=== PATIENT | female | born 1930 | race African-American/Black ===

== ENCOUNTER 2019-12-19 07:28 | Emergency (ER) | payer MEDICARE, OTHER ==
[~2019-12-19] VITALS: Ht 165.1 cm; Wt 50.0 kg
[~2019-12-19 07:28] MED LIST: ALBU8.5H5 IH; DOXY100C2 PO; FLUT1DIS IH; LEVO500T47 PO; PRED20TA PO; TIOT18CA INH
[2019-12-19] MEDS ORDERED: methylPREDNISolone SOD SUCC 125 MG/2 ML ONE (07:47)
--- NOTE | 2019-12-19 07:52 | NUR ---
PER SON "HER RESPIRATOR RAN OUT OF WATER. SO I THINK THAT'S WHAT HAPPENED. I'M CALLING TO GET IT REPLACED." LAB BEDSIDE.
--- NOTE | 2019-12-19 07:59 | NUR ---
89 Y/O FEMALE BIB AMBULANCE WITH C/O SOB. PER EMS REPORT PT GOT SOB LAST NIGHT. ON ARRIVAL PT WAS 68% ON ROOM AIR. PT WAS PLACED ON 10 LPM BY FIRE. PT APPEARS TO BE ON RA HERE AT 90%. PT PLACED ON 2 LPM, WHICH IS HER BASELINE AT HOME. PT OXYGEN SATURATION NOW 94%. 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 PT RECEIVED TWO NEB TREATMENTS CORRIDOR REDEVELOPMENT MANAGER. NO C/O N/V/D, TRAUMA, SYNCOPE, CP.
[2019-12-19] MEDS ORDERED: ALBUTEROL/IPRATROPIUM 2.5MG/0.5MG, 3 ML NPPB SCH (08:00)
[2019-12-19] MEDS ORDERED: methylPREDNISolone SOD SUCC 125 MG/2 ML IV ONE (08:00)
[2019-12-19] MEDS ORDERED: SODIUM CHLORIDE FLUSH 10ML SYR IVF ONE (08:00)
[2019-12-19 08:07] LABS: MEAN CORPUSCULAR HGB CONC 31.6 g/dL (32.4-35.8); MEAN PLATELET VOLUME 7.6 fL (7.4-10.4); PLATELET COUNT 206 x10^3/uL (130-400); RED BLOOD COUNT 4.19 x10^6/uL (3.82-5.3); RED CELL DISTRIBUTION WIDTH 15.2 % (9.6-15.2)
[2019-12-19 08:15] LABS: ALBUMIN 4.2 g/dL (3.4-5.0); ANION GAP 8 mmol/L (5-15); CALCIUM 9.4 mg/dL (8.5-10.1); CHLORIDE 107 mmol/L (98-107); CREATININE 0.65 mg/dL (0.55-1.02)
[2019-12-19 08:19] LABS: TROPONIN I < 0.015 ng/mL (0.000-0.045)
[2019-12-19 08:42] LABS: BASOPHILS # (AUTO) 0.01 x10^3/uL (0-0.1); BASOPHILS % (AUTO) 0 % (0-1); EOSINOPHILS # (AUTO) 0.01 x10^3/uL (0-0.4); EOSINOPHILS % (AUTO) 0 % (1-7); LYMPHOCYTES # (AUTO) 0.72 x10^3/uL (1-3.4); LYMPHOCYTES % (AUTO) 13 % (22-44); MD SCAN; MONOCYTES # (AUTO) 0.32 x10^3/uL (0.2-0.8); MONOCYTES % (AUTO) 6 % (2-9); NEUTROPHILS # (AUTO) 4.35 x10^3/uL (1.8-6.8); NEUTROPHILS % (AUTO) 80 % (42-75)
[2019-12-19] MEDS ORDERED: ALBUTEROL/IPRATROPIUM 2.5MG/0.5MG, 3 ML ONE (08:56)
--- NOTE | 2019-12-19 09:04 | NUR ---
PT RESTING ON JUDY. NADN. DORANTES. SON BEDSIDE.
[2019-12-19] MEDS ORDERED: FLUT1BLS8 INH (10:29)
--- NOTE | 2019-12-19 10:29 | NUR ---
SON STATES SHE TAKES A HTN AND DEMENTIA MEDICATION BUT DOES NOT KNOW THE NAME OF THE MED. HOSPITALIST BEDSIDE.
--- NOTE | 2019-12-19 10:30 | NUR ---
PT CONTINUES TO REST COMFORTABLY. NADN. SON BEDSIDE. NO NEEDS REQUESTED AT THIS TIME. PT AND SON VERBALIZE UNDERSTANDING REGARDING ADMISSION.
--- NOTE | 2019-12-19 10:43 | NUR ---
PT AMBULATORY WITH STAND BY ASSISTANCE TO BATHROOM.
--- NOTE | 2019-12-19 10:50 | NUR ---
PT BACK TO ROOM. PT PLACED ON ALL MONITORS. QUIN. SON BEDSIDE.
[2019-12-19 11:12] VITALS: BP 142/59
--- NOTE | 2019-12-19 11:12 | NUR ---
PT RESTING ON GURMARIBEL. QUIN. SON BEDSIDE. VSS. NO OTHER NEEDS REQUESTED AT THIS TIME.
--- NOTE | 2019-12-19 12:00 | NUR ---
Patient/Caregiver given discharge instructions and they have confirmed that they understand the instructions. Patient ambulatory with steady gait TO BATHROOM. PT PLACED IN WHEELCHAIR TO D/C. PT HAS HER HOME CONCENTRATOR FOR D/C. PT LEFT WITH ALL PERSONAL BELONGINGS.
== END 2019-12-19 12:04 | disposition home or self-care (01) ==
LOC: ED 07:41 → EDIP 10:27 → UNDOADMIN 10:27
DX: J44.1 Chronic obstructive pulmonary disease with (acute) exacerbation (principal); I48.91 Unspecified atrial fibrillation; Z87.891 Personal history of nicotine dependence
CPT/HCPCS: 36415; 71045; 80048; 82040; 83605; 83880; 84484; 85025; 87040; 93005; 94640; 96374; 99285; J2930

== ENCOUNTER 2020-03-13 04:15 | Emergency (ER) | payer MEDICARE, OTHER ==
[~2020-03-13] VITALS: Ht 165.1 cm; Wt 50.0 kg
[~2020-03-13 04:15] MED LIST changes: +FLUT1BLS8 INH
--- NOTE | 2020-03-13 05:00 | NUR ---
PT ASSISTED TO RESTROOM, REQ 1 PERSON ASSIST FOR STABILITY. PT IS ON 4L NC BASELINE O2 AT HOME
[2020-03-13 05:19] LABS: ALBUMIN 3.9 g/dL (3.4-5.0); ANION GAP 4 mmol/L (5-15); BASOPHILS % (AUTO) 1 % (0-1); CALCIUM 9.1 mg/dL (8.5-10.1); CHLORIDE 105 mmol/L (98-107); CREATININE 0.67 mg/dL (0.55-1.02); EOSINOPHILS % (AUTO) 2 % (1-7); LYMPHOCYTES % (AUTO) 17 % (22-44); MEAN CORPUSCULAR HEMOGLOBIN 29.1 pg (27.0-34.8); MEAN CORPUSCULAR HGB CONC 31.6 g/dL (32.4-35.8); MEAN PLATELET VOLUME 7.6 fL (7.4-10.4); MONOCYTES % (AUTO) 8 % (2-9); NEUTROPHILS % (AUTO) 73 % (42-75); PLATELET COUNT 182 x10^3/uL (130-400); RED BLOOD COUNT 3.89 x10^6/uL (3.82-5.3); RED CELL DISTRIBUTION WIDTH 14.4 % (9.6-15.2)
[2020-03-13 05:29] LABS: MD NO
[2020-03-13 06:43] LABS: MICROSCOPIC INDICATED
[2020-03-13 07:52] VITALS: BP 158/66
== END 2020-03-13 07:55 | disposition home or self-care (01) ==
LOC: ED 07:49
DX: S22.040A Wedge compression fracture of fourth thoracic vertebra, initial encounter for closed fracture (principal); G31.89 Other specified degenerative diseases of nervous system; F02.80 Dementia in other diseases classified elsewhere, unspecified severity, without behavioral disturbance, psychotic disturbance, mood disturbance, and anxiety; R94.31 Abnormal electrocardiogram [ECG] [EKG]; J44.9 Chronic obstructive pulmonary disease, unspecified; W18.30XA Fall on same level, unspecified, initial encounter; Y93.89 Activity, other specified; Y92.89 Other specified places as the place of occurrence of the external cause; Y99.8 Other external cause status
CPT/HCPCS: 36415; 70450; 72128; 80048; 81001; 82040; 85025; 87086; 93005; 99285